=== PATIENT | female | born 1950 | race Caucasian/White ===

== ENCOUNTER 2016-11-06 16:47 | Emergency (ER) | payer OTHER, MEDICAID ==
[~2016-11-06] VITALS: Ht 165.1 cm; Wt 64.5 kg
[~2016-11-06 16:47] MED LIST: ACET1TAB12 PO; CARV6 PO; FERR-89 PO; FURO20 PO; LISI-662 PO; MELO-273 PO; SIMV-261 PO
[2016-11-06 19:40] LABS: BASOPHILS % (AUTO) 0.4 % (0.0-2.0); EOSINOPHILS % (AUTO) 1.7 % (1.0-6.0); HEMATOCRIT 41.1 % (36-46); LYMPHOCYTES # (AUTO) 1.4 K/uL (1.0-4.8); LYMPHOCYTES % (AUTO) 19.3 % (22.0-44.0); MEAN CORPUSCULAR HEMOGLOBIN 26.1 pg (26.0-34.0); MEAN CORPUSCULAR HGB CONC 31.6 G/dL (31.0-37.0); MEAN CORPUSCULAR VOLUME 83 fL (80-100); MONOCYTES # (AUTO) 0.5 K/uL (0.1-1.0); MONOCYTES % (AUTO) 6.5 % (2.0-9.0); NEUTROPHILS # (AUTO) 5.3 K/uL (1.8-7.7); NEUTROPHILS % (AUTO) 72.1 % (40.0-70.0); PLATELET COUNT (AUTO) 237 K/uL (150-450); RED BLOOD CELL COUNT(AUTO) 4.99 MIL/uL (4.00-5.20); RED CELL DISTRIBUTION WIDTH 15.2 % (11.5-14.5); WHITE BLOOD COUNT (AUTO) 7.3 K/uL (4.5-11.0)
[2016-11-06 19:48] LABS: ANION GAP 14 mmol/L (8-16); CALCIUM, TOTAL 9.1 mg/dL (8.8-10.5); CARBON DIOXIDE 22 mmol/L (22-29); CHLORIDE 105 mmol/L (98-107); CREATININE 1.07 mg/dL (0.60-1.30); GLOMERULAR FILTR. RATE CALC 51 mL/min (>60); POTASSIUM 3.9 mmol/L (3.5-5.1); SODIUM SERUM 141 mmol/L (136-145); UREA NITROGEN, BLOOD 11 mg/dL (7-18)
[2016-11-06 19:54] LABS: B-TYPE NATRIURETIC PEPTIDE 1320 pg/mL (0-100)
[2016-11-06 19:55] LABS: ALANINE AMINOTRANSFERASE 30 U/L (12-78); ALBUMIN 3.6 g/dL (3.4-5.0); ASPARTATE AMINOTRANSFERASE 32 U/L (15-37); BILIRUBIN,TOTAL 0.6 mg/dL (0.1-1.0); CREATINE KINASE, TOTAL 60 U/L (26-192); TOTAL PROTEIN, SERUM 7.6 g/dL (6.4-8.2)
[2016-11-06] MEDS ORDERED: OxyCODONE HCL/ACETAMINOPHEN 5-325 MG TABLET PO ONE (20:15)
[2016-11-06] MEDS ORDERED: SODIUM CHLORIDE 0.9% 1,000 ML IV ONE (21:15)
[2016-11-06 21:33] LABS: APPEARANCE,URINE CLOUDY (CLEAR); GLUCOSE, URINE (UA) NEGATIVE (NEGATIVE); KETONES,URINE NEGATIVE (NEGATIVE); LEUKOCYTE ESTERASE ,URINE MODERATE (NEGATIVE); OCCULT BLOOD,URINE TRACE (NEGATIVE); PH,URINE 5.5 (5.0-8.0); PROTEIN,URINE POS 1+ (NEGATIVE)
[2016-11-06] MEDS ORDERED: SODIUM CHLORIDE 0.9% 100 ML ONE (21:45)
[2016-11-06] MEDS ORDERED: IOVERSOL 350 MG/ML 100 ML VIAL ONE (21:45)
[2016-11-06 21:56] LABS: ADD UA MICROSCOPIC YES
[2016-11-06 22:17] LABS: RBC,URINE 0-2 /HPF (0-2)
[2016-11-06 22:18] LABS: SQUAMOUS EPITHELIAL CELL,UR Few /LPF (None Seen)
[2016-11-07 01:42] VITALS: BP 159/90
== END 2016-11-07 01:54 | disposition home or self-care (01) ==
LOC: EMS 16:48
DX: N39.0 Urinary tract infection, site not specified (principal); R06.02 Shortness of breath; E11.9 Type 2 diabetes mellitus without complications; K21.9 Gastro-esophageal reflux disease without esophagitis; I11.9 Hypertensive heart disease without heart failure; F17.210 Nicotine dependence, cigarettes, uncomplicated; F12.90 Cannabis use, unspecified, uncomplicated; Z87.11 Personal history of peptic ulcer disease
CPT/HCPCS: 36415; 71010; 71260; 80053; 81001; 82550; 83880; 84484; 85025; 85379; 87086; 93005; 96360; 96361; 99285; J7030; J7050; Q9967

== ENCOUNTER 2016-12-04 06:28 | Emergency (ER) | payer OTHER ==
[~2016-12-04] VITALS: Ht 167.6 cm; Wt 64.5 kg
[~2016-12-04 06:28] MED LIST changes: -FERR-89 PO; +FERS325 PO; -SIMV-261 PO; +SIMV40 PO
[2016-12-04] MEDS ORDERED: LISI-662 PO (06:38)
[2016-12-04] MEDS ORDERED: ASPI-556 PO (06:38)
[2016-12-04 07:30] LABS: BASOPHILS % (AUTO) 0.6 % (0.0-2.0); HEMATOCRIT 39.5 % (36-46); HEMOGLOBIN 12.6 g/dL (12.0-16.0); LYMPHOCYTES # (AUTO) 1.1 K/uL (1.0-4.8); LYMPHOCYTES % (AUTO) 19.5 % (22.0-44.0); MEAN CORPUSCULAR HEMOGLOBIN 25.9 pg (26.0-34.0); MEAN CORPUSCULAR HGB CONC 31.8 G/dL (31.0-37.0); MEAN CORPUSCULAR VOLUME 81 fL (80-100); MONOCYTES # (AUTO) 0.5 K/uL (0.1-1.0); MONOCYTES % (AUTO) 8.4 % (2.0-9.0); NEUTROPHILS # (AUTO) 3.8 K/uL (1.8-7.7); NEUTROPHILS % (AUTO) 69.5 % (40.0-70.0); PLATELET COUNT (AUTO) 180 K/uL (150-450); RED BLOOD CELL COUNT(AUTO) 4.85 MIL/uL (4.00-5.20); RED CELL DISTRIBUTION WIDTH 16.3 % (11.5-14.5); WHITE BLOOD COUNT (AUTO) 5.4 K/uL (4.5-11.0)
[2016-12-04 07:34] LABS: ANION GAP 12 mmol/L (8-16); CALCIUM, TOTAL 9.5 mg/dL (8.8-10.5); CARBON DIOXIDE 24 mmol/L (22-29); CHLORIDE 106 mmol/L (98-107); GLOMERULAR FILTR. RATE CALC > 60 mL/min (>60); POTASSIUM 3.4 mmol/L (3.5-5.1); SODIUM SERUM 142 mmol/L (136-145); UREA NITROGEN, BLOOD 10 mg/dL (7-18)
[2016-12-04 07:36] LABS: INR 1.1 (0.9-1.1); PROTHROMBIN TIME 11.6 SEC (9.4-11.6)
[2016-12-04 07:41] LABS: ALANINE AMINOTRANSFERASE 17 U/L (12-78); ALBUMIN 3.2 g/dL (3.4-5.0); ASPARTATE AMINOTRANSFERASE 13 U/L (15-37); BILIRUBIN,TOTAL 0.6 mg/dL (0.1-1.0); CREATINE KINASE, TOTAL 51 U/L (26-192); TOTAL PROTEIN, SERUM 6.7 g/dL (6.4-8.2)
[2016-12-04 07:55] LABS: B-TYPE NATRIURETIC PEPTIDE 1360 pg/mL (0-100)
[2016-12-04] MEDS ORDERED: IOVERSOL 350 MG/ML 150 ML VIAL ONE (12:01)
[2016-12-04] MEDS ORDERED: SODIUM CHLORIDE 0.9% 100 ML ONE (12:01)
[2016-12-04] MEDS ORDERED: IOVERSOL 350 MG/ML 100 ML VIAL ONE (12:06)
[2016-12-04] MEDS: FUROSEMIDE 40 MG/4 ML VIAL IVP ONE (12:09)
[2016-12-04] MEDS: HYDROmorphone 2 MG/ML SYRINGE IVP ONE ×2 (12:09→17:29)
[2016-12-04] MEDS: BARIUM SULFATE 0.1% SUSPENSION 450 ML BOTTLE PO ONE ×2 (13:22)
[2016-12-04 13:35] LABS: GLUCOSE, URINE (UA) NEGATIVE (NEGATIVE); KETONES,URINE NEGATIVE (NEGATIVE); LEUKOCYTE ESTERASE ,URINE SMALL (NEGATIVE); OCCULT BLOOD,URINE NEGATIVE (NEGATIVE); PROTEIN,URINE POS 1+ (NEGATIVE)
[2016-12-04 13:38] LABS: APPEARANCE,URINE HAZY (CLEAR)
[2016-12-04 13:39] LABS: ADD UA MICROSCOPIC YES
[2016-12-04 13:40] LABS: RBC,URINE None Seen /HPF (0-2)
[2016-12-04] MEDS: ONDANSETRON HCL 4 MG/2 ML VIAL IVP ONE (13:41)
[2016-12-04 13:42] LABS: SQUAMOUS EPITHELIAL CELL,UR Few /LPF (None Seen)
[2016-12-04 18:37] VITALS: BP 139/75
== END 2016-12-04 18:57 | disposition left against medical advice (07) ==
LOC: EMS 06:29
DX: R60.0 Localized edema (principal); R19.00 Intra-abdominal and pelvic swelling, mass and lump, unspecified site; K21.9 Gastro-esophageal reflux disease without esophagitis; E11.9 Type 2 diabetes mellitus without complications; I11.0 Hypertensive heart disease with heart failure; I50.9 Heart failure, unspecified; F17.210 Nicotine dependence, cigarettes, uncomplicated; F12.90 Cannabis use, unspecified, uncomplicated; Z79.82 Long term (current) use of aspirin
CPT/HCPCS: 36415; 71010; 74177; 80053; 81001; 82550; 83690; 83880; 84484; 85025; 85610; 85730; 87086; 93005; 93970; 96374; 96375; 96376; 99285; J1170; J1940; J2405; J7050; Q9967

== ENCOUNTER 2017-01-24 01:46 | Emergency (ER) | payer OTHER ==
[~2017-01-24] VITALS: Ht 165.1 cm; Wt 60.9 kg
[~2017-01-24 01:46] MED LIST changes: -ACET1TAB12 PO; +ASPI-556 PO; +FERR-89 PO; -FERS325 PO; -FURO20 PO; -MELO-273 PO; +SIMV-261 PO; -SIMV40 PO
[2017-01-24] MEDS ORDERED: KDUR20 PO (01:53)
[2017-01-24] MEDS ORDERED: FURO20 PO (01:53)
[2017-01-24] MEDS ORDERED: CARV12 PO (01:53)
[2017-01-24] MEDS ORDERED: SPIR25 PO (01:53)
[2017-01-24] MEDS ORDERED: ONDANSETRON HCL 4 MG TABLET PO ONE (04:15)
[2017-01-24 04:38] VITALS: BP 138/85
== END 2017-01-24 04:41 | disposition home or self-care (01) ==
LOC: EMS 01:47
DX: R19.00 Intra-abdominal and pelvic swelling, mass and lump, unspecified site (principal); R10.84 Generalized abdominal pain; F17.210 Nicotine dependence, cigarettes, uncomplicated; F12.10 Cannabis abuse, uncomplicated; Z95.5 Presence of coronary angioplasty implant and graft; F41.9 Anxiety disorder, unspecified; F32.9 Major depressive disorder, single episode, unspecified; E11.9 Type 2 diabetes mellitus without complications; K21.9 Gastro-esophageal reflux disease without esophagitis; I10 Essential (primary) hypertension; M19.90 Unspecified osteoarthritis, unspecified site
CPT/HCPCS: 99283; 99406; Q0162

== ENCOUNTER 2017-02-17 17:21 | Emergency (ER) | payer OTHER ==
[~2017-02-17] VITALS: Ht 165.1 cm; Wt 61.0 kg
[~2017-02-17 17:21] MED LIST changes: +CARV12 PO; -CARV6 PO; +FURO20 PO; +KDUR20 PO; +SPIR25 PO
[2017-02-17] MEDS ORDERED: VITA113.3 PO (17:28)
[2017-02-17] MEDS ORDERED: OXYC10 PO (17:28)
[2017-02-17] MEDS ORDERED: ALBU8HFA IH (17:28)
[2017-02-17] MEDS ORDERED: ZOLP5 PO (17:28)
[2017-02-17] MEDS ORDERED: IBUP-2070 PO (17:28)
[2017-02-17] MEDS ORDERED: ACET-66 PO (17:28)
[2017-02-17 19:13] LABS: BASOPHILS % (AUTO) 0.5 % (0.0-2.0); HEMATOCRIT 41.8 % (36-46); HEMOGLOBIN 13.4 g/dL (12.0-16.0); LYMPHOCYTES # (AUTO) 1.6 K/uL (1.0-4.8); LYMPHOCYTES % (AUTO) 20.1 % (22.0-44.0); MEAN CORPUSCULAR HEMOGLOBIN 25.5 pg (26.0-34.0); MEAN CORPUSCULAR HGB CONC 32.1 G/dL (31.0-37.0); MEAN CORPUSCULAR VOLUME 79 fL (80-100); MONOCYTES # (AUTO) 0.7 K/uL (0.1-1.0); MONOCYTES % (AUTO) 9.3 % (2.0-9.0); NEUTROPHILS # (AUTO) 5.1 K/uL (1.8-7.7); NEUTROPHILS % (AUTO) 65.1 % (40.0-70.0); PLATELET COUNT (AUTO) 365 K/uL (150-450); RED BLOOD CELL COUNT(AUTO) 5.28 MIL/uL (4.00-5.20); RED CELL DISTRIBUTION WIDTH 17.2 % (11.5-14.5); WHITE BLOOD COUNT (AUTO) 7.9 K/uL (4.5-11.0)
[2017-02-17 19:16] LABS: RBC MORPHOLOGY COMMENT ABNORMAL RBC MORPH
[2017-02-17 19:22] LABS: ANION GAP 8 mmol/L (8-16); CALCIUM, TOTAL 10.2 mg/dL (8.8-10.5); CARBON DIOXIDE 28 mmol/L (22-29); CHLORIDE 100 mmol/L (98-107); CREATININE 1.06 mg/dL (0.60-1.30); GLOMERULAR FILTR. RATE CALC 52 mL/min (>60); POTASSIUM 4.5 mmol/L (3.5-5.1); SODIUM SERUM 136 mmol/L (136-145); UREA NITROGEN, BLOOD 18 mg/dL (7-18)
[2017-02-17 19:24] LABS: INR 0.9 (0.9-1.1); PROTHROMBIN TIME 9.7 SEC (9.4-11.6)
[2017-02-17 19:28] LABS: ALANINE AMINOTRANSFERASE 22 U/L (12-78); ALBUMIN 3.5 g/dL (3.4-5.0); ASPARTATE AMINOTRANSFERASE 19 U/L (15-37); BILIRUBIN,TOTAL 0.2 mg/dL (0.1-1.0); CREATINE KINASE, TOTAL 30 U/L (26-192)
[2017-02-17 19:48] LABS: B-TYPE NATRIURETIC PEPTIDE 841 pg/mL (0-100)
[2017-02-17] MEDS ORDERED: ALBUTEROL SULFATE 5 MG/ML 20 ML NEB SOLN [BULK] NEB ONE (20:45)
[2017-02-17] MEDS ORDERED: FUROSEMIDE 40 MG/4 ML VIAL IVP ONE (20:45)
[2017-02-17] MEDS ORDERED: IPRATROPIUM BROMIDE 0.5 MG/2.5 ML NEB SOLUTION NEB ONE ×2 (20:45→22:30)
[2017-02-17] MEDS ORDERED: OXYC5 PO (20:46)
[2017-02-17] MEDS ORDERED: ALBUTEROL SULFATE 2.5 MG/0.5 ML NEB SOLUTION NEB ONE (22:30)
[2017-02-17 23:54] VITALS: BP 124/66
== END 2017-02-17 23:57 | disposition home or self-care (01) ==
LOC: EMS 17:23
DX: I11.0 Hypertensive heart disease with heart failure (principal); I50.9 Heart failure, unspecified; J44.1 Chronic obstructive pulmonary disease with (acute) exacerbation; R10.9 Unspecified abdominal pain; K21.9 Gastro-esophageal reflux disease without esophagitis; E11.9 Type 2 diabetes mellitus without complications; F17.210 Nicotine dependence, cigarettes, uncomplicated; F12.90 Cannabis use, unspecified, uncomplicated; Z79.82 Long term (current) use of aspirin
CPT/HCPCS: 36415; 71010; 80053; 80307; 82550; 83880; 84484; 85025; 85610; 85730; 93005; 94640; 96374; 99285; J1940

== ENCOUNTER 2017-08-20 22:01 | Emergency (ER) | payer OTHER, MEDICAID ==
[~2017-08-20] VITALS: Ht 165.1 cm; Wt 68.2 kg
[~2017-08-20 22:01] MED LIST changes: +ACET-66 PO; +ALBU8HFA IH; -FERR-89 PO; +IBUP-2070 PO; -LISI-662 PO; +OXYC5 PO; +VITA113.3 PO; +ZOLP5 PO
[2017-08-20] MEDS ORDERED: CLOP75 PO (22:50)
[2017-08-20] MEDS ORDERED: CEPH250 PO (22:50)
[2017-08-20] MEDS ORDERED: HYDR-305 PO (22:50)
[2017-08-20] MEDS ORDERED: SACU1TAB PO (22:50)
[2017-08-20 22:57] LABS: GLUCOSE,POINT OF CARE 104 MG/DL (70-110)
[2017-08-21 01:53] LABS: BASOPHILS % (AUTO) 0.5 % (0.0-2.0); EOSINOPHILS % (AUTO) 4.4 % (1.0-6.0); HEMATOCRIT 37.1 % (36-46); HEMOGLOBIN 12.3 g/dL (12.0-16.0); LYMPHOCYTES # (AUTO) 1.8 K/uL (1.0-4.8); LYMPHOCYTES % (AUTO) 22.4 % (22.0-44.0); MEAN CORPUSCULAR HEMOGLOBIN 28.2 pg (26.0-34.0); MEAN CORPUSCULAR VOLUME 85 fL (80-100); MONOCYTES # (AUTO) 0.8 K/uL (0.1-1.0); MONOCYTES % (AUTO) 10.4 % (2.0-9.0); NEUTROPHILS % (AUTO) 62.3 % (40.0-70.0); PLATELET COUNT (AUTO) 226 K/uL (150-450); RED BLOOD CELL COUNT(AUTO) 4.35 MIL/uL (4.00-5.20); RED CELL DISTRIBUTION WIDTH 14.5 % (11.5-14.5)
[2017-08-21 02:06] LABS: CALCIUM, TOTAL 9.7 mg/dL (8.8-10.5); CREATININE 1.5 mg/dL (0.60-1.30); POTASSIUM 3.9 mmol/L (3.5-5.1)
[2017-08-21 02:11] LABS: ALBUMIN 3.5 g/dL (3.4-5.0); BILIRUBIN,TOTAL 0.2 mg/dL (0.1-1.0); TOTAL PROTEIN, SERUM 7.5 g/dL (6.4-8.2)
[2017-08-21 03:12] VITALS: BP 135/65
== END 2017-08-21 04:04 | disposition home or self-care (01) ==
LOC: EMS 22:08
DX: L97.519 Non-pressure chronic ulcer of other part of right foot with unspecified severity (principal); R60.0 Localized edema; M19.90 Unspecified osteoarthritis, unspecified site; F32.9 Major depressive disorder, single episode, unspecified; E11.9 Type 2 diabetes mellitus without complications; K21.9 Gastro-esophageal reflux disease without esophagitis; I10 Essential (primary) hypertension; F17.210 Nicotine dependence, cigarettes, uncomplicated; Z79.2 Long term (current) use of antibiotics; Z79.899 Other long term (current) drug therapy
CPT/HCPCS: 82962; 99284